=== PATIENT | female | born 1980 | race Caucasian/White ===

== ENCOUNTER 2018-07-18 07:48 | Emergency (ER) | payer SELFPAY ==
[2018-07-18 08:07] VITALS: BP 109/67
--- NOTE | 2018-07-18 08:24 | UC ---
Throat Pain/Nasal Kin HPI - HPI Summary HPI Summary: 2-year-old woman comes to clinic today with a chief complaint of cough and chest congestion. Symptoms started about a month ago. Initially things were getting better but then the last week it got a lot worse. Overnight they were worse. He trying different [id number] medications with very little relief. No fevers or chills she's unable to get up any sputum. Eyes any sinus pressure rhinorrhea. She has heard some wheezing. Patient is a smoker. - History of Current Complaint Chief Complaint: UCGeneralIllness Stated Complaint: COUGH Time Seen by Provider: 07/18/18 08:13 Hx Last Menstrual Period: 07/05/18 Pain Intensity: 8 - Allergies/Home Medications Allergies/Adverse Reactions: Allergies Allergy/AdvReac Type Severity Reaction Status Date / Time codeine Allergy Intermediate Vomiting Verified 07/18/18 08:01 Home Medications: Home Medications D-Methorphan/PE/Acetaminophen [Day Time Cold-Flu Liquid] 1 dose PO BID PRN 07/18 [History Confirmed 07/18/18] Ibuprofen [Advil] 2 tab PO TID PRN 07/18/18 [History Confirmed 07/18/18] PMH/Surg Hx/FS Hx/Imm Hx Previously Healthy: Yes - Surgical History Surgical History: Yes Surgery Procedure, Year, and Place: tubal 2004 - Family History Known Family History: Positive: Hypertension, Other - COPD - Social History Alcohol Use: Occasionally Substance Use Type: None Smoking Status (MU): Current Every Day Smoker Type: Cigarettes Amount Used/How Often: 1/2 PPD Length of Time of Smoking/Using Tobacco: 19 years Have You Smoked in the Last Year: Yes - Immunization History Most Recent Tetanus Shot: UNK Review of Systems Constitutional: Negative Skin: Negative Eyes: Negative ENT: Negative Respiratory: Shortness Of Breath, Cough Cardiovascular: Chest Pain - CHEST TIGHTNESS, WORSE WITH COUGH Gastrointestinal: Negative Motor: Negative Neurovascular: Negative Musculoskeletal: Negative Neurological: Negative Psychological: Negative Is Patient Immunocompromised?: No All Other Systems Reviewed And Are Negative: Yes Physical Exam Triage Information Reviewed: Yes Appearance: No Pain Distress, Well-Nourished, Ill-Appearing - MILD Vital Signs: Initial Vital Signs Temp 97.3 F 07/18/18 08:01 Pulse 72 07/18/18 08:01 Resp 20 07/18/18 08:01 BP 109/67 10/29/18 08:01 Pulse Ox 97 07/18/18 08:01 Eye Exam: Normal Eyes: Positive: Conjunctiva Clear ENT: Positive: Pharyngeal erythema, TMs normal Neck exam: Normal Neck: Positive: Supple Respiratory Exam: Normal Respiratory: Positive: Lungs clear, Normal breath sounds, No respiratory distress Cardiovascular: Positive: RRR Musculoskeletal Exam: Normal Musculoskeletal: Positive: Strength Intact, ROM Intact Neurological Exam: Normal Neurological: Positive: Alert, Muscle Tone Normal Psychological Exam: Normal Psychological: Positive: Age Appropriate Behavior Skin Exam: Normal Throat Pain/Nasal Course/Dx - Differential Dx/Diagnosis Provider Diagnoses: BRONCHITIS WITH BRONCHOSPASM Discharge - Sign-Out/Discharge Documenting (check all that apply): Patient Departure All imaging exams completed and their final reports reviewed: No Studies - Discharge Plan Condition: Stable Disposition: HOME Prescriptions: Albuterol HFA INHALER* [Ventolin HFA Inhaler*] 2 puff INH Q4H PRN #1 mdi PRN Reason: Wheezing Azithromyxin JAYY (NF) [Z-Jayy (Zithromax) 250 mg tabs #6] 2 tab PO .TODAY, THEN 1 DAILY #6 tab Patient Education Materials: Acute Bronchitis (ED), Bronchospasm (ED) Referrals: [facility] [Outside] Additional Instructions: FOLLOW UP WITH YOUR DOCTOR IF NOT COMPLETELY IMPROVED. GET RECHECKED FOR ANY WORSENING OF YOUR CONDITION OR QUESTIONS OR CONCERNS. - Billing Disposition and Condition Condition: STABLE Disposition: Home
== END 2018-07-18 08:30 | disposition home or self-care (01) ==
LOC: UCEAST 07:48
DX: J40 Bronchitis, not specified as acute or chronic (principal); F17.210 Nicotine dependence, cigarettes, uncomplicated
CPT/HCPCS: 99212; G0463

== ENCOUNTER 2019-04-20 21:08 | Emergency (ER) | payer SELFPAY ==
--- NOTE | 2019-04-20 21:11 | UC ---
Lower Extremity/Ankle HPI - HPI Summary HPI Summary: 38 yo female presents with LEFT foot pain. She tells me that for the past 2-3 weeks she has been having left foot pain at the base of her 2nd-4th toes. Only has pain with weight bearing and ambulation. Has not taken anything OTC for her discomfort and has not tried comfortable footwear or any shoe inserts. Denies specific injury. No numbness or tingling. - History of Current Complaint Stated Complaint: FOOT PAIN Hx Obtained From: Patient Hx Last Menstrual Period: 07/05/18 Onset/Duration: Gradual Onset Severity Initially: Mild Severity Currently: Mild Pain Intensity: 4 Pain Scale Used: 0-10 Numeric Aggravating Factor(s): Standing, Ambulation Alleviating Factor(s): Rest, Elevation Able to Bear Weight: Yes - Allergies/Home Medications Allergies/Adverse Reactions: Allergies Allergy/AdvReac Type Severity Reaction Status Date / Time codeine Allergy Intermediate Vomiting Verified 04/20/19 21:23 Home Medications: Home Medications NK [No Home Medications Reported] 04/20/19 [History Confirmed 04/20/19] PMH/Surg Hx/FS Hx/Imm Hx - Additional Past Medical History Additional PMH: None - Surgical History Surgical History: Yes Surgery Procedure, Year, and Place: tubal 2004 - Family History Known Family History: Positive: Hypertension, Other - COPD - Social History Lives: With Family Alcohol Use: Occasionally Substance Use Type: None Smoking Status (MU): Current Every Day Smoker Type: Cigarettes Amount Used/How Often: 1/2 PPD Length of Time of Smoking/Using Tobacco: 19 years Have You Smoked in the Last Year: Yes - Immunization History Most Recent Tetanus Shot: UNK Review of Systems All Other Systems Reviewed And Are Negative: Yes Constitutional: Positive: Negative Skin: Positive: Negative Neurovascular: Positive: Negative Musculoskeletal: Positive: Other: - Foot pain Neurological: Positive: Negative Psychological: Positive: Negative Physical Exam - Summary Physical Exam Summary: GENERAL: NAD. WDWN. No pain distress. SKIN: No rashes, sores, lesions, or open wounds. CHEST: No accessory muscle use. Breathing comfortably and in no distress. CV: Pulses intact PT and DP. Cap refill <2seconds MSK: LEFT FOOT: NTTP foot and MTs/MTPs. FROM. Mild hammertoe formations in all toes. Strength 5/5. No edema or obvious bony deformities. NEURO: Alert. Sensations intact and symmetric B/L LEs PSYCH: Age appropriate behavior. Triage Information Reviewed: Yes Vital Signs: Vital Signs: Temp Pulse Resp BP Pulse Ox 99.2 F 92 16 107/57 97 04/20/19 21:19 04/20/19 21:19 04/20/19 21:19 04/20/19 21:19 04/20/19 21:19 Vital Signs Reviewed: Yes Lower Extremity Course/Dx - Course Course Of Treatment: XR: wet read with no acute process. Suspect tendinitis vs overuse injury. Advised to try OTC shoe inserts for comfort. Rest, ice, and may take tylenol/ ibuprofen for discomfort as directed. F/u with podiatry if symptoms do not improve. - Differential Dx/Diagnosis Provider Diagnosis: Foot tendinitis Discharge - Sign-Out/Discharge Documenting (check all that apply): Patient Departure All imaging exams completed and their final reports reviewed: No - Discharge Plan Condition: Stable Disposition: HOME Patient Education Materials: Tendinitis (ED) Referrals: No Primary Care JoseNOPCP [Primary Care Provider] - Arturo Su DPM [Doctor of Podiatric Medicine] - If Needed Additional Instructions: If you develop a fever, shortness of breath, chest pain, new or worsening symptoms - please call your PCP or go to the ED immediately. Your X-Ray today was normal. I suspect you have experiencing some tendinitis to your foot. I recommend you try an [id number] shoe insert to see if this improves your discomfort. If your symptoms do not improve, please call podiatry at the number below to schedule an appointment as you may benefit from further evaluation - Billing Disposition and Condition Condition: STABLE Disposition: Home
[2019-04-20 21:22] VITALS: BP 107/57
--- NOTE | 2019-04-21 11:58 | UC ---
- Progress Note Progress Note: RADIOLOGY REPORT REVIEWED. CONFIRMS NO EVIDENCE FOR FRACTURE. NO CHANGE IN MANAGEMENT. Course/Dx - Diagnoses Provider Diagnoses: Foot tendinitis Discharge - Sign-Out/Discharge Documenting (check all that apply): Post-Discharge Follow Up All imaging exams completed and their final reports reviewed: Yes - Discharge Plan Condition: Stable Disposition: HOME Patient Education Materials: Tendinitis (ED) Referrals: Arturo Su DPM [Doctor of Podiatric Medicine] - If Needed No Primary Care Phys,NOPCP [Primary Care Provider] - Additional Instructions: If you develop a fever, shortness of breath, chest pain, new or worsening symptoms - please call your PCP or go to the ED immediately. Your X-Ray today was normal. I suspect you have experiencing some tendinitis to your foot. I recommend you try an [id number] shoe insert to see if this improves your discomfort. If your symptoms do not improve, please call podiatry at the number below to schedule an appointment as you may benefit from further evaluation - Billing Disposition and Condition Condition: STABLE Disposition: Home
== END 2019-04-20 21:45 | disposition home or self-care (01) ==
LOC: UCEAST 21:08
DX: M77.52 Other enthesopathy of left foot and ankle (principal); F17.210 Nicotine dependence, cigarettes, uncomplicated
CPT/HCPCS: 99211; G0463